=== PATIENT | male | born 1945 | race Caucasian/White ===

== ENCOUNTER 2020-09-12 10:41 | Observation (INO) | payer MEDICARE ==
[~2020-09-12] VITALS: Ht 172.7 cm; Wt 83.2 kg
[2020-09-12 11:10] LABS: BASO % 0.4 % (0.0-2.0); EOS # 0.1 (0.0-0.7); EOS % 1.1 % (0-4.0); GRAN # 5.1 (1.4-6.5); GRAN % 69.6 % (42.2-75.2); HEMATOCRIT 41.2 % (42.0-52.0); HEMOGLOBIN 14.2 g/dl (13.5-18.0); LYMPH # 1.7 (1.2-3.4); LYMPH % 22.4 % (20.0-51.0); MEAN CELL VOLUME 93 fl (80.0-100.0); MEAN CORPUSCULAR HEMOGLOBIN 32 pg (27.0-31.0); MEAN CORPUSCULAR HGB CONC 35 g/dl (33.0-37.0); MEAN PLATELET VOLUME 9.9 fl (7.4-10.4); MONO # 0.5 (0.1-0.6); MONO % 6.1 % (1.7-9.3); PLATELET COUNT 214 K/mm3 (130-400); RED BLOOD COUNT 4.44 M/mm3 (4.20-5.60); REDCELL DISTRIBUTION WIDTH-CV 12.5 % (11.5-14.5)
[2020-09-12 11:20] LABS: ALANINE AMINOTRANSFERASE 25 U/L (4-49); ALBUMIN 4.1 gm/dL (3.5-5.0); ALKALINE PHOSPHATASE 72 U/L (50-136); ANION GAP 6 mmol/L (7-16); AST,SGOT 28 U/L (15-37); BILIRUBIN,TOTAL 0.6 mg/dL (0.0-1.0); BLOOD UREA NITROGEN 22 mg/dL (9-20); CALCIUM 9.2 mg/dL (8.4-10.2); CARBON DIOXIDE 23 mmol/L (22-30); CHLORIDE 104 mmol/L (98-107); CREATININE, serum 0.84 (0.66-1.25); GLUCOSE 146 mg/dL (74-106); POTASSIUM 3.7 mmol/L (3.4-5.0); SODIUM 133 mmol/L (137-145); TOTAL PROTEIN 7.2 gm/dL (6.4-8.2)
[2020-09-12 11:26] LABS: INR 1.1 (0.8-3.0); PROTHROMBIN TIME 11.8 SECONDS (9.7-12.8)
[2020-09-12] MEDS ORDERED: PREVACID 30MG30 M1 PO (11:28)
[2020-09-12] MEDS ORDERED: LIPITOR 10MG10 MG PO (11:28)
[2020-09-12 11:29] LABS: PARTIAL THROMBOPLASTIN TIME 28.6 SECONDS (26.0-37.0)
[2020-09-12] MEDS ORDERED: PLAVIX 75MG TAB75 MG PO (11:29)
[2020-09-12] MEDS ORDERED: ASPIRIN 81M81 MG/TA2 PO (11:29)
[2020-09-12] MEDS ORDERED: FLOMAX 0.40.4 MG/CAP PO (11:29)
[2020-09-12 11:56] LABS: TROPONIN-I < 0.012 ng/mL (0.000-0.035)
[2020-09-12 13:23] LABS: COLLECTION METHOD CLEAN CATCH
[2020-09-12 13:40] LABS: PH 6 (5-8); SQUAMOUS EPITHELIAL None Seen /hpf; URINE APPEARANCE Clear; URINE BACTERIA None Seen /hpf; URINE BILIRUBIN Negative (NEGATIVE); URINE BLOOD Negative (NEGATIVE); URINE COLOR Yellow; URINE GLUCOSE Negative (NEGATIVE); URINE KETONE 1+ (NEGATIVE); URINE LEUKOCYTE ESTERASE Negative (NEGATIVE); URINE NITRATE Negative (NEGATIVE); URINE PROTEIN(semi-quant) Negative (NEGATIVE); URINE RBC None Seen /hpf; URINE UROBILINOGEN Negative (NEGATIVE)
--- NOTE | 2020-09-12 15:00 | NUR ---
Patient admitted from the ED for bradycardia. Report recieved from KORY Pickard. Upon initial assessment, normal S1 and S2 sounds present, pedal and radial pulses +2 bilaterally, lungs were clear to auscultation, bowel sounds present in all four quadrants, patient A&O, no skin issues noted. Patient did C/O weakness. Patient deemed to be a low fall risk. Calls for help and knows his limitations. Fluids started as ordered. Lisinopril given for a blood pressure of 173/71. Adult intake form completed. Allergies and pharmacy reviewed. Patient denies any pain, discomfort, or further needs at this time. Will conitnue to monitor. Call light in reach.
[2020-09-12 15:09] VITALS: BP 173/71; PULSE 59; TEMP 97.4
[2020-09-12 15:57] VITALS: BP 173/71; PULSE 59; TEMP 97.4
[2020-09-12 19:54] VITALS: BP 119/51; PULSE 70; TEMP 98.1
--- NOTE | 2020-09-12 21:00 | NUR ---
Initial shift assessment done- denies pain- states feels pretty good tonight-- denies dizziness at this time, Tele on-SB rate 50-60min, IV fluids of NS at 75cc/hr- patient reminded that he has to call for assistance to the bathroom due to dizziness at times-- states understanding, VSS, bed alarm on.
[2020-09-13 00:37] VITALS: BP 116/54; PULSE 56; TEMP 97.6
[2020-09-13 04:04] VITALS: BP 111/50; PULSE 59; TEMP 97.5
--- NOTE | 2020-09-13 06:06 | NUR ---
Quiet night- states ready to go home- denies dizziness- states"Im fine and I need to be home before noon today!" VSS, Tele on,, HR 55/min at this time.
[2020-09-13 06:34] LABS: BASO % 0.4 % (0.0-2.0); EOS # 0.1 (0.0-0.7); EOS % 1.8 % (0-4.0); GRAN # 4.4 (1.4-6.5); GRAN % 66.2 % (42.2-75.2); HEMATOCRIT 39.7 % (42.0-52.0); HEMOGLOBIN 13.3 g/dl (13.5-18.0); LYMPH # 1.6 (1.2-3.4); LYMPH % 24.3 % (20.0-51.0); MEAN CELL VOLUME 97 fl (80.0-100.0); MEAN CORPUSCULAR HEMOGLOBIN 32 pg (27.0-31.0); MEAN CORPUSCULAR HGB CONC 34 g/dl (33.0-37.0); MEAN PLATELET VOLUME 9.5 fl (7.4-10.4); MONO # 0.5 (0.1-0.6); PLATELET COUNT 194 K/mm3 (130-400); RED BLOOD COUNT 4.11 M/mm3 (4.20-5.60); REDCELL DISTRIBUTION WIDTH-CV 13.1 % (11.5-14.5)
[2020-09-13 06:44] LABS: CALCIUM 8.7 mg/dL (8.4-10.2); CREATININE, serum 0.88 (0.66-1.25); POTASSIUM 4.1 mmol/L (3.4-5.0)
[2020-09-13 07:19] VITALS: BP 147/61; PULSE 59; TEMP 97.9
--- NOTE | 2020-09-13 09:00 | NUR ---
Pt assessment complete. Pt is laying in bed upon entry, he is A/O x4. His breathing is even and unlabored on RA. Pt denies SOB. No dizziness at this time, he reports he is feeling much better. No pain at this time. POC discussed with patient. POC discussed with patient.
[2020-09-13 12:43] VITALS: BP 136/66; PULSE 72; TEMP 97.9
--- NOTE | 2020-09-13 13:57 | NUR ---
Initial visit; Patient thanked Case Sealer for looking in on him, listening and offering encouragement.
[2020-09-13] MEDS ORDERED: ZESTRIL40 MG PO (14:20)
[2020-09-13 16:11] VITALS: BP 140/67; PULSE 67; TEMP 98.1
--- NOTE | 2020-09-13 16:45 | NUR ---
Discharge paperwork and instructions reviewed with patient. All questions answered at this time. IV to Lhand and RAC dc'd catheter intact. Pt wheeled out at this time.
== END 2020-09-13 16:46 | disposition home or self-care (01) ==
LOC: COL.ER 10:41 → MEDICAL 12:21
PROVIDERS: Family Medicine; Physician Assistant; ADMIT Internal Medicine
DX: R55 Syncope and collapse (principal); R00.1 Bradycardia, unspecified; I10 Essential (primary) hypertension; R11.10 Vomiting, unspecified; E87.1 Hypo-osmolality and hyponatremia; H72.92 Unspecified perforation of tympanic membrane, left ear; K21.9 Gastro-esophageal reflux disease without esophagitis; N40.0 Benign prostatic hyperplasia without lower urinary tract symptoms; E78.5 Hyperlipidemia, unspecified; Z79.82 Long term (current) use of aspirin; Z79.899 Other long term (current) drug therapy; Z79.02 Long term (current) use of antithrombotics/antiplatelets
CPT/HCPCS: 99232-AI; G0378; J2550; J7030

== ENCOUNTER → 2020-09-21 | Outpatient (CLI) | payer MEDICARE ==
[~2020-09-21] MED LIST: ASPIRIN 81M81 MG/TA2 PO; FLOMAX 0.40.4 MG/CAP PO; LIPITOR 10MG10 MG PO; PLAVIX 75MG TAB75 MG PO; PREVACID 30MG30 M1 PO; ZESTRIL40 MG PO
== END ==
LOC: COL.CARD 11:10
DX: R00.1 Bradycardia, unspecified (principal); R42 Dizziness and giddiness